=== PATIENT | male | born 1945 ===

== ENCOUNTER 2022-12-22 09:07 | Inpatient (IN) | payer OTHER ==
[~2022-12-22] VITALS: Ht 162.6 cm; Wt 44.4 kg
[2022-12-23] MEDS ORDERED: LOSARTAN-HCTZ1 EAC2 PO (08:14)
[2022-12-23] MEDS ORDERED: AMLODIPINE BESY10 MG PO (08:14)
[2022-12-23] MEDS ORDERED: TOPROL XL50 M1 PO (08:14)
[2022-12-23] MEDS ORDERED: ACID REDUCER20 M1 PO (08:15)
[2022-12-23] MEDS ORDERED: LIPITOR20 MG PO (08:15)
[2022-12-30] MEDS ORDERED: METFORMIN HCL500 M4 (07:49)
[2022-12-30] MEDS ORDERED: DORZOLAMIDE-TIM10 ML (07:49)
[2022-12-30] MEDS ORDERED: BRIMONIDINE TART5 M1 (07:50)
[2022-12-30] MEDS ORDERED: DONEPEZIL HCL10 MG (07:50)
[2022-12-30] MEDS ORDERED: LATANOPROST2.5 ML (07:50)
[2022-12-30] MEDS ORDERED: ZOLPIDEM TARTRA10 MG (07:50)
[2022-12-30] MEDS ORDERED: OMEPRAZOLE20 MG (07:50)
== END 2023-01-01 17:25 | DRG 470 ==
LOC: SURG 12-30 07:00 → O/R 12-30 07:23 → SURG 12-30 07:30 → SURH 12-30 16:06
PROVIDERS: ADMIT Orthopaedic Surgery; ATTEND Orthopaedic Surgery
PROC: 0SRD0JZ Replacement of Left Knee Joint with Synthetic Substitute, Open Approach (ICD-10-PCS; principal; 2022-12-30 07:00)
DX: M17.12 Unilateral primary osteoarthritis, left knee (principal); D62 Acute posthemorrhagic anemia; M85.662 Other cyst of bone, left lower leg; I10 Essential (primary) hypertension; Z96.652 Presence of left artificial knee joint